=== PATIENT | male | born 1995 | race Caucasian/White ===

== ENCOUNTER 2017-07-12 18:19 | Emergency (ER) | payer MEDICAID, OTHER ==
[~2017-07-12] VITALS: Ht 162.6 cm; Wt 49.4 kg
[~2017-07-12 18:19] MED LIST: ALBU8I INH; AMOX875T PO; FLUT1SPR9 EACH NARE
[2017-07-12 18:33] VITALS: BP 132/63; PULSE 71; RESP 18; TEMP 98; O2SAT 100
[2017-07-12] MEDS ORDERED: ERYTOIN10 LEFT EYE (19:05)
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
[2017-07-12] MEDS ORDERED: ERYTHROMYCIN 0.5% OPTH OINT 3.5 GM TUBO LEFT EYE ONE (19:15)
== END 2017-07-12 19:30 | disposition home or self-care (01) ==
LOC: PHEFT 18:19
DX: S05.00XA Injury of conjunctiva and corneal abrasion without foreign body, unspecified eye, initial encounter (principal); W22.8XXA Striking against or struck by other objects, initial encounter; J45.909 Unspecified asthma, uncomplicated
CPT/HCPCS: 99283